=== PATIENT | female | born 1980 | race Caucasian/White ===

== ENCOUNTER 2018-01-31 14:41 | Emergency (ER) | payer BC ==
[2018-01-31 15:05] VITALS: BP 117/80
--- NOTE | 2018-01-31 16:05 | RAD ---
Indication: Right knee injury. 4 views of the right knee demonstrates suprapatellar effusion. No fracture is identified. IMPRESSION: Suprapatellar effusion without fracture.
--- NOTE | 2018-01-31 16:56 | UC ---
Knee Pain HPI - HPI Summary HPI Summary: 37-year-old woman comes in with complaint of right knee pain. Yesterday she twisted her right knee and it gave out. This happened 2 more times yesterday. There is swelling in the anterior portion of the knee. Complaining of tenderness in the anterior knee. She feels like it wants to get out. The swelling in the anterior knee. No clicking or locking. Difficulty with full extension secondary to swelling. - History of Current Complaint Chief Complaint: UCLowerExtremity Stated Complaint: RIGHT KNEE COMPLAINT Time Seen by Provider: 01/31/18 15:16 Hx Last Menstrual Period: 01/24/18 Pain Intensity: 5 Pain Scale Used: 0-10 Numeric - Allergies/Home Medications Allergies/Adverse Reactions: Allergies Allergy/AdvReac Type Severity Reaction Status Date / Time environmental allergies Allergy Congestion Uncoded 01/31/18 15:05 Home Medications: Home Medications DULoxetine DR CAP* [Cymbalta CAP*] 30 mg PO BEDTIME 01/31/18 [History Confirmed 01/31/18] DULoxetine DR CAP* [Cymbalta CAP*] 60 mg PO ONCE 01/31/18 [History Confirmed 08/15] Ibuprofen TAB* [Motrin TAB* 800 MG] 800 mg PO ONCE 01/31/18 [History Confirmed 01/31/18] buPROPion TAB* [Wellbutrin TAB*] 75 mg PO DAILY 01/31/18 [History Confirmed 08/15] PMH/Surg Hx/FS Hx/Imm Hx Other Endocrine History: NO DM Other Cardiovascular History: NO CAD - Surgical History Surgical History: None - Family History Known Family History: Positive: Hypertension Family History: FHX CVA - Social History Alcohol Use: Rare Substance Use Type: None Smoking Status (MU): Never Smoked Tobacco Review of Systems Constitutional: Negative Skin: Negative Eyes: Negative ENT: Negative Respiratory: Negative Cardiovascular: Negative Gastrointestinal: Negative Motor: Negative Neurovascular: Negative Musculoskeletal: Other: - Pain and swelling right knee Neurological: Negative Psychological: Negative Is Patient Immunocompromised?: No All Other Systems Reviewed And Are Negative: Yes Physical Exam Triage Information Reviewed: Yes Appearance: Well-Appearing, Well-Nourished Vital Signs: Initial Vital Signs Temp 97.5 F 01/31/18 15:00 Pulse 73 01/31/18 15:00 Resp 16 01/31/18 15:00 BP 117/80 01/31/18 15:00 Pulse Ox 99 01/31/18 15:00 Vital Signs Reviewed: Yes Eye Exam: Normal ENT Exam: Normal Neck: Positive: Supple Respiratory Exam: Normal Respiratory: Positive: No respiratory distress Cardiovascular: Positive: RRR Musculoskeletal: Positive: Other: - The right knee has an effusion around the patella. There is tenderness with lateral movement of the patella. The lateral and medial and posterior aspects of the knee are nontender. The knee is stable to exam however the patient reports it feels unstable during the exam. Positive Miles's medial and lateral. Neurological Exam: Normal Psychological Exam: Normal Skin Exam: Normal Knee Pain Course/Dx - Course Course Of Treatment: Order Information: KNEE RIGHT 4+ VWS. Accession Number: [id number]. CPT: 88555. Indication: Right knee injury. 4 views of the right knee demonstrates suprapatellar effusion. No fracture is identified. IMPRESSION : Suprapatellar effusion without fracture. . <Electronically signed by Nilsa Henderson MD in OV> 01/31 1602. Connor wrap ice rests elevation minimize weightbearing. Follow-up with primary medical doctor or with sports medicine and orthopedics. - Differential Dx/Diagnosis Provider Diagnoses: RIGHT KNEE PAIN WITH EFFUSION Discharge - Sign-Out/Discharge Documenting (check all that apply): Patient Departure All imaging exams completed and their final reports reviewed: Yes - Discharge Plan Condition: Stable Disposition: HOME Patient Education Materials: Swollen Knee Joint (ED), Knee Pain (ED) Referrals: [facility] [Outside] Junie Bansal MD [Primary Care Provider] - Additional Instructions: FOLLOW UP WITH YOUR PRIMARY CARE DOCTOR AND SPORTS MEDICINE/ORTHOPEDICS. GET RECHECKED FOR ANY WORSENING OF YOUR CONDITION OR QUESTIONS OR CONCERNS. - Billing Disposition and Condition Condition: STABLE Disposition: Home
== END 2018-01-31 16:38 | disposition home or self-care (01) ==
LOC: UCCORT 14:41
DX: M25.561 Pain in right knee (principal); M25.461 Effusion, right knee; Z91.09 Other allergy status, other than to drugs and biological substances; X50.1XXA Overexertion from prolonged static or awkward postures, initial encounter
CPT/HCPCS: 99213; G0463

== ENCOUNTER 2018-05-04 12:26 | Emergency (ER) | payer BC ==
[2018-05-04 12:57] VITALS: BP 102/71
--- NOTE | 2018-05-04 13:09 | UC ---
UC General HPI - HPI Summary HPI Summary: pt slipped on ice and fell injuring her R knee today. knee wants to give out and hurts. hurt same knee in january of this year and it never completely recovered. felt like joint was still loose. - History of Current Complaint Chief Complaint: UCLowerExtremity Stated Complaint: RIGHT KNEE INJURY Time Seen by Provider: 05/04/18 12:48 Hx Obtained From: Patient Hx Last Menstrual Period: 04/13 Onset/Duration: Sudden Onset Timing: Constant Pain Intensity: 7 Aggravating: weigth and walking on R leg Associated Signs & Symptoms: Negative: Fever - Allergy/Home Medications Allergies/Adverse Reactions: Allergies Allergy/AdvReac Type Severity Reaction Status Date / Time environmental allergies Allergy Congestion Uncoded 05/04/18 12:58 Home Medications: Home Medications Levocetirizine Dihydrochloride [Xyzal Allergy 24Hr] 5 mg PO QPM 05/04/18 [ History Confirmed 05/04/18] PMH/Surg Hx/FS Hx/Imm Hx Psychological History: Anxiety, Depression - Surgical History Surgical History: None - Family History Known Family History: Positive: Hypertension Family History: FHX CVA - Social History Lives: With Family Alcohol Use: Rare Substance Use Type: None Smoking Status (MU): Never Smoked Tobacco - Immunization History Vaccination Up to Date: Yes Review of Systems All Other Systems Reviewed And Are Negative: Yes Constitutional: Positive: Negative Skin: Positive: Negative Eyes: Positive: Negative ENT: Positive: Negative Respiratory: Positive: Negative Cardiovascular: Positive: Negative Gastrointestinal: Positive: Negative Genitourinary: Positive: Negative Motor: Positive: Negative Neurovascular: Positive: Negative Musculoskeletal: Positive: Other: - R knee pain Neurological: Positive: Negative Psychological: Positive: Negative Is Patient Immunocompromised?: No Physical Exam Triage Information Reviewed: Yes Appearance: Well-Appearing Vital Signs: Initial Vital Signs Temp 99.1 F 05/04/18 12:48 Pulse 90 05/04/18 12:48 Resp 16 05/04/18 12:48 BP 102/71 05/04/18 12:48 Pulse Ox 100 05/04/18 12:48 Eyes: Positive: Conjunctiva Clear ENT: Positive: Normal ENT inspection Neck: Positive: Supple Respiratory: Positive: Lungs clear Cardiovascular: Positive: RRR, No Murmur Abdomen Description: Positive: Nontender, No Organomegaly, Soft Bowel Sounds: Positive: Present Musculoskeletal: Positive: Other: - RLE: hip, ankle, foot are non tender. achilles is non tender and intact. knee without deformity or swelling but is tender over joint line. knee has no joint laxity plus active/passive rom is intact. gross s/v/m intact to foot. Neurological: Positive: Alert Psychological: Positive: Age Appropriate Behavior Skin Exam: Normal Diagnostics - Radiology No standard instances Radiology Interpretation Completed By: ED Physician - WET READ=NO FX, Radiologist - R KNEE=NO EVIDENCE FOR FRACTURE. Course/Dx - Differential Dx - Multi-Symptom Differential Diagnoses: Other - NO FX OR CONCERN FOR INFECTION. NO OVERT JOINT LAXITY. POSSIBLE MENISCAL INJURY. CRUTCHES, NON WEIGHT ON R LEG AND ORTHO F/U. - Diagnoses Provider Diagnosis: Right knee pain Discharge - Sign-Out/Discharge Documenting (check all that apply): Patient Departure All imaging exams completed and their final reports reviewed: Yes - Discharge Plan Condition: Stable Disposition: HOME Patient Education Materials: Knee Pain (ED) Referrals: Kd Hunter MD [Medical Doctor] - As Soon As Possible Additional Instructions: USE YOUR CRUTCHES AND AVOID WEIGHT ON RIGHT LEG UNTIL CLEARED BY ORTHOPEDICS - Billing Disposition and Condition Condition: STABLE Disposition: Home - Attestation Statements Provider Attestation: I was available for consult. This patient was seen by the WILLIAM. The patient was not presented to, seen by, or examined by me. -Jessee
== END 2018-05-04 14:11 | disposition home or self-care (01) ==
LOC: UCCORT 12:26
DX: M25.561 Pain in right knee (principal); W00.0XXA Fall on same level due to ice and snow, initial encounter; Y92.9 Unspecified place or not applicable
CPT/HCPCS: 99211; G0463

== ENCOUNTER → 2018-06-06 05:53 | Day surgery (SDC) | payer BC ==
[~2018-06-06 05:53] MED LIST: Atracurium* 10 MG/ML 10 ML VIAL ONE; Buffered Lidocaine 0.9% SYRIN* 5 ML/SYR SYRINGE INTRADERM ONE; Dexamethasone IV* 4 MG/ML 1 ML (4 MG) IV SLOW PU ONE; Dexamethasone IV* 4 MG/ML 1 ML (4 MG) ONE; DiMENhydriNATE IV* 50 MG/ML VIAL IV PUSH PRN; EPHEDrine (Pressors)* 50 MG/ML VIAL ONE; Famotidine IV* 10 MG/ML 2 ML (20 mg) IV ONE; Famotidine IV* 10 MG/ML 2 ML (20 mg) ONE; HYDROmorphone INJ1* 1 MG/ML SYRINGE IV PRN; Ketorolac INJ* 30 MG/ML 1 ML VIAL ONE; Lactated Ringers 1000 ML Bag* 1,000 ML IV SCH; Lidocain 1% EPI 1:100,000 * 30 ML MDV ONE; Lidocaine 2% PF * 5 ML VIAL ONE; Midazolam* 1 MG/ML 5 ML VIAL (5 MG) ONE; Naloxone* 0.4 MG/ML 1 ML VIAL IV PRN; Ondansetron INJ* 2 MG/ML VIAL IV PRN; Ondansetron INJ* 2 MG/ML VIAL ONE; Propofol* 10 MG/ML 20 ML BTL ONE; Ropivacaine* 2 MG/ML 20 ML VIAL (0.2%) ONE; Scopolamine 1.5 mg* PATCH TRANSDERM PRN; ceFAZolin 2 GM PREMIX in ORs 2 GM/50 ML BAG IVPB ONE; fentaNYL* 50 MCG/ML 2 ML VIAL (100 MCG VIAL) IV PRN; fentaNYL* 50 MCG/ML 2 ML VIAL (100 MCG VIAL) ONE; fentaNYL* 50 MCG/ML 5 ML VIAL (250 MCG VIAL) ONE; oxyCODONE/Acetamin 5/325 MG* TAB PO PRN
[2018-06-06 10:57] VITALS: BP 115/75
--- NOTE | 2018-06-07 02:18 | OP ---
DATE OF OPERATION: 06/06/18 [facility] DATE OF : 76 SURGEON: Kira Stewart MD INDUSTRIAL SWEEPER CLEANER: AUDRA Stewart. An shipping assistant was needed for the entirety of the case to help with positioning, retraction, and was utilized throughout all portions of the case. ANESTHESIOLOGIST: Dr. Link. ANESTHESIA: General. PRE-OP DIAGNOSIS: Right grade 3 ACL rupture with lateral meniscus bucket handle tear. POST-OP DIAGNOSIS: Right grade 3 ACL rupture with lateral meniscus bucket handle tear. OPERATIVE PROCEDURE: Right knee arthroscopy with: 1. Lateral meniscus repair. 2. ACL reconstruction using BTB autograft. COMPLICATIONS: None. ESTIMATED BLOOD LOSS: Minimal. TOURNIQUET TIME: 30 minutes. IMPLANTS USED: Bailey and Nephew 2 FastFix 360 and one 7 x 20 SoftSilk and one 9 x 25 SoftSilk. INDICATIONS: Willow Rdz is a 37-year-old female who sustained an injury to her knee. She has had persistent instability. She initially presented with a locked knee. She has failed conservative management. At the operative date, her knee had unlocked, she was able to have more range of motion, but she had persistent pain and instability. Risks and benefits of surgery were discussed at length including but not limited to bleeding; infection; damage to nerves, vessels, surrounding structures; wound nonhealing; persistent pain; need for further surgery; scaring; stiffness; incomplete relief of symptoms; risks of anesthesia, or risk of arthritis. She elected to proceed with surgical treatment. DESCRIPTION OF PROCEDURE: The patient was greeted in the preoperative area by the attending surgeon. The correct extremity was marked. Consent was confirmed. The patient brought back to the operating suite where she was placed in the supine position on the operating room table. She then underwent general anesthesia via LMA intubation, after which she was appropriately positioned on the bed. An unsterile tourniquet was placed high on the proximal thigh, a lateral post was positioned, a beanbag was placed to allow the leg to rest at 90 degrees. The right leg was then prepped and draped in the usual sterile fashion beginning with chlorhexidine, soap, scrub, and alcohol wipe and a final prep with ChloraPrep. After appropriate surgical pause indicating site, side, procedure, and administration of antibiotics; the knee was intra-articularly injected with 1% lidocaine with epi. The limb was then exsanguinated. An Esmarch was used to exsanguinate the limb. The tourniquet was inflated to 250 mmHg. A midline incision to the treating side, medial over the patellar tendon was then made with a #15 blade. Soft tissues were carefully dissected to expose the peritenon , layers were preserved for later closure. The patellar tendon was identified. It measured about 30 mm in width. The center 10 mm was then harvested for full thickness grafts using a 10 blade. The harvest was taken proximally to allow for a 9 x 23 mm patellar bone block, distally 10 x 30 mm patellar bone block. The graft was then harvested using a sagittal saw and osteotome. It was then prepared on the back table by the shipping assistant while the surgeon closed the patellar tendon and full thickness flaps with care to not over tighten and thus cause patellar baja. The tourniquet was deflated. After this was done, the attention was directed to the arthroscopy. A portal incision was made through the capsule and the scope was introduced to the joint. Joint was examined. There were grade 0 to 1 changes of the medial femoral condyle, medial plateau. ACL obviously had a grade 3 rupture with a tibial stump. The knee was taken to full extension. The anterior medial portal was made in an outside-in fashion. Shaver was used to debride back the abundant bursa. Synovitis was present. Patella was visualized and had grade 0 to 1 changes of patella and trochlea had grade 0 changes. Medial and lateral gutters were intact without any loose debris. The medial compartment was examined; again, there were grade 0 to 1 changes in the medial femoral condyle and grade 0 changes in the plateau. Medial meniscus was intact. The knee was placed in [id number] position. The lateral compartment was examined. There was hemorrhage posteriorly that was apparent. The anterior aspect of the lateral meniscus was found to be intact. The probe was then used to check the meniscus. The joint was subluxed into the joint. Decision was made to repair this. There was found to be a tear of the capsule in the red-red zone. The capsule as well as the meniscus remnant was then rasped using the meniscus rasp. Then, two FastFix 360s were then placed with excellent purchase. The tissue quality was okay, but it did hold the stitch. The knee was then taken through range of motion. There was no evidence of tearing or subluxation of the meniscus. Attention was then directed to remainder of the ACL. The knee was positioned at 90 degrees, the tibial and femoral footprints were exposed. Using a shaver and electro-cautery device to expose the femoral tunnel , the starting awl was then used to do provisional towboat pilot hole as the reference point for femoral tunnel, the camera was switched to the medial portal and the femoral tunnel was identified. Attention was then directed to the tibial tunnel. Once the center was identified using a tip-to-tip guide centered about 52 degrees, the center guidewire was drilled. The bone quality was fairly poor and once the appropriate position was identified, a 10 mm [place] reamer was then used to drill the tibial tunnel. The tunnel was then rasped. Care was taken to prevent fluid egress. Attention was directed to the femoral tunnel. The knee was then hyperflexed and the Bailey and Nephew straight guide was then placed in the center of the footprint and a Beath pin was drilled in the center of the footprint and out to the lateral condyle and to the IT band and the skin. Again, the bone quality was not very good. Once the optimal position was identified, a 9-mm low profile reamer was then used to drill a tunnel to a depth of about 25 mm. All excess bone and debris was removed. The tunnel was then notched. The #2 Ethibond suture was placed through the island of the Beath pin and advanced and then passed through anterograde fashion to the tibial tunnel. The graft was then brought from the back table, which had been rasped in saline silk gauze and then brought to the operating table. The graft was then passed under direct and arthroscopic visualization to be well seated in femoral tunnel. It was then secured with a 7 x 20 mm SoftSilk screw. The knee was then cycled approximately 15 times to make sure there is no movement or failure of the graft. The scope was brought back to the joint and there is no evidence of impingement anteriorly and the graft was found to be in good position. The knee was then placed at about 20 degrees of flexion with tension on the tibial sutures. A size 9 x 25 mm screw was then used to secure the tibial grasp. These were placed with excellent purchase. The knee was then taken through a range of motion. Juan was assessed and found to be stable. The scope was brought back to the joint and the graft was found to be in good position. Final images were obtained, the wounds were then copiously irrigated with sterile saline. Bone graft was placed in the patella and then the tibial defects and then closed with 0 Vicryl in interrupted fashion. Peritenon was closed with 2-0 Vicryl in a running fashion. Wounds were irrigated again and the skin was closed in layers with 2-0 Vicryl and 3- 0 Monocryl. Sterile dressings were applied. Cryo/Cuff and a hinged knee brace with range of motion 0 to 70 degrees was then placed. The wound was also injected with 0.2% ropivacaine because of pain control. She was awoken from anesthesia and transferred to PACU in stable condition. POSTOPERATIVE PLAN: She will be nonweightbearing. She will be discharged on pain medications and antibiotics. DVT prophylaxis considered, but deferred due to no previous personal or family history. I will see the patient back in 6 to 8 days. She will start therapy on postop day 3 or 4. [id number]/[facility] #: [id number] [facility]
== END | disposition home or self-care (01) ==
LOC: OR 05:53
PROVIDERS: ATTEND Orthopaedic Surgery
DX: S83.511A Sprain of anterior cruciate ligament of right knee, initial encounter (principal); S83.251A Bucket-handle tear of lateral meniscus, current injury, right knee, initial encounter; W00.0XXA Fall on same level due to ice and snow, initial encounter; Y92.480 Sidewalk as the place of occurrence of the external cause; M19.90 Unspecified osteoarthritis, unspecified site; F41.8 Other specified anxiety disorders
CPT/HCPCS: 81025; C1713; J0690; J1100; J1885; J2250; J2405; J2704; J2795; J3010

== ENCOUNTER 2018-11-21 11:09 | Day surgery (SDC) | payer BC ==
[~2018-11-21 11:09] MED LIST changes: -Atracurium* 10 MG/ML 10 ML VIAL ONE; -Buffered Lidocaine 0.9% SYRIN* 5 ML/SYR SYRINGE INTRADERM ONE; +Buffered Lidocaine 1% SYRIN* 1 ML/SYRINGE INTRADERM ONE; -Dexamethasone IV* 4 MG/ML 1 ML (4 MG) ONE; -DiMENhydriNATE IV* 50 MG/ML VIAL IV PUSH PRN; -EPHEDrine (Pressors)* 50 MG/ML VIAL ONE; -Famotidine IV* 10 MG/ML 2 ML (20 mg) ONE; -HYDROmorphone INJ1* 1 MG/ML SYRINGE IV PRN; -Ketorolac INJ* 30 MG/ML 1 ML VIAL ONE; -Lidocain 1% EPI 1:100,000 * 30 ML MDV ONE; -Lidocaine 2% PF * 5 ML VIAL ONE; -Midazolam* 1 MG/ML 5 ML VIAL (5 MG) ONE; -Naloxone* 0.4 MG/ML 1 ML VIAL IV PRN; -Ondansetron INJ* 2 MG/ML VIAL IV PRN; -Ondansetron INJ* 2 MG/ML VIAL ONE; -Propofol* 10 MG/ML 20 ML BTL ONE; -Ropivacaine* 2 MG/ML 20 ML VIAL (0.2%) ONE; -Scopolamine 1.5 mg* PATCH TRANSDERM PRN; -ceFAZolin 2 GM PREMIX in ORs 2 GM/50 ML BAG IVPB ONE; -fentaNYL* 50 MCG/ML 2 ML VIAL (100 MCG VIAL) IV PRN; -fentaNYL* 50 MCG/ML 2 ML VIAL (100 MCG VIAL) ONE; -fentaNYL* 50 MCG/ML 5 ML VIAL (250 MCG VIAL) ONE; -oxyCODONE/Acetamin 5/325 MG* TAB PO PRN
[2018-11-21] MEDS ORDERED: ceFAZolin 2 GM PREMIX in ORs 2 GM/50 ML BAG ONE (11:37)
[2018-11-21] MEDS ORDERED: Famotidine IV* 10 MG/ML 2 ML (20 mg) ONE (11:37)
[2018-11-21] MEDS ORDERED: Dexamethasone IV* 4 MG/ML 1 ML (4 MG) ONE (11:37)
[2018-11-21] MEDS ORDERED: Ropivacaine 0.2% * 2 MG/ML VIAL ONE (12:06)
[2018-11-21] MEDS ORDERED: Lidocaine 1% MPF wEPI 200,000* 30 ML SDV ONE (12:06)
[2018-11-21] MEDS ORDERED: Midazolam* 1 MG/ML 5 ML VIAL (5 MG) ONE (12:28)
[2018-11-21] MEDS ORDERED: fentaNYL* 50 MCG/ML 5 ML VIAL (250 MCG VIAL) ONE (12:28)
[2018-11-21] MEDS ORDERED: oxyCODONE/Acetamin 5/325 MG* TAB PO PRN (13:04)
[2018-11-21] MEDS ORDERED: fentaNYL* 50 MCG/ML 2 ML VIAL (100 MCG VIAL) IV PRN (13:04)
[2018-11-21] MEDS ORDERED: DiMENhydriNATE IV* 50 MG/ML VIAL IV PUSH PRN (13:04)
[2018-11-21] MEDS ORDERED: Ondansetron INJ* 2 MG/ML VIAL IV PRN (13:04)
[2018-11-21] MEDS ORDERED: Naloxone* 0.4 MG/ML 1 ML VIAL IV PRN (13:04)
[2018-11-21] MEDS ORDERED: Ketorolac INJ* 30 MG/ML 1 ML VIAL ONE (13:12)
[2018-11-21] MEDS ORDERED: Propofol* 10 MG/ML 20 ML BTL ONE (13:12)
[2018-11-21] MEDS ORDERED: Ondansetron INJ* 2 MG/ML VIAL ONE (13:12)
[2018-11-21] MEDS ORDERED: Lidocaine 2% PF * 5 ML VIAL ONE (13:12)
[2018-11-21 14:26] VITALS: BP 115/71
--- NOTE | 2018-11-21 15:06 | OP ---
CC: PCP, Junie Bansal MD * DATE OF OPERATION: 11/21/18 - [facility] DATE OF : 76 SURGEON: Kira Stewart MD. TIRE REBUILDER: None available. ANESTHESIOLOGIST: Dr. Link. ANESTHESIA: General. PRE-OP DIAGNOSES: Previous right knee anterior cruciate ligament reconstruction , lateral meniscus repair with intact graft and stiffness and ankylosis. POST-OP DIAGNOSES: Previous right knee anterior cruciate ligament reconstruction lateral meniscus repair with intact graft and stiffness and ankylosis, chondrosis of the medial femoral condyle. OPERATIVE PROCEDURES: 1. Right knee arthroscopy with lysis of adhesion. 2. Chondroplasty of medial femoral condyle and partial lateral meniscectomy. COMPLICATIONS: None. ESTIMATED BLOOD LOSS: Minimal. INDICATIONS: Willow Rdz is a 38-year-old female who underwent previous ACL construction with BTB autograft and lateral meniscus repair. She was doing well and had no pain, but she was starting to notice stiffness. She was unable to fully extend. I told her to work on physical therapy, antiinflammatories, ice, and heat. She continues to struggle. She does hyperextend her other side and did not promise that she would do that on this side, but she should at least get to 0. When I last saw her, she is interested to proceed with surgical treatment. The risks and benefits of surgery were discussed at length including but not limited to bleeding, infection; damage to nerves, vessels, surrounding structures; wound nonhealing; persistent pain; need for surgery; scarring; stiffness; incomplete relief of symptoms; risk of anesthesia. DESCRIPTION OF PROCEDURE: The patient was greeted in the preoperative area by the attending surgeon. The correct extremity was marked and consent was confirmed. The patient was brought back to the operating suite, where she was placed in supine position on the operating table. She then underwent general anesthesia with endotracheal intubation, after which she was appropriately positioned in the bed. The lateral post is positioned. The sterile tourniquet was placed on the proximal thigh. The leg was then prepped and draped in the usual sterile fashion beginning with chlorhexidine soap, scrub, and alcohol wipe , and a final prep with ChloraPrep. After appropriate surgical pause indicating side, site, procedure, and administration of antibiotics, the knee was intra-articularly injected with 1% lidocaine with epi. The anterolateral portal was made using 11 blade. Scope was introduced into the joint. Joint was examined. There was a small chondral flap that was apparent and there was some synovitis and no definitive cyclops lesion, but scar from the ligamentum from the notch to the prepatellar fat pad. The anteromedial portal was made in an outside-in fashion. Shaver was used to debride this back. The graft was intact. There was some mild fraying, which was debrided back, but the graft was intact. The knee was placed in full extension. There were grade 0 to 1 changes in the trochlea. There was an evidence of a chondral flap in the medial femoral condyle in the weightbearing zone. At the medial aspect of the medial femoral condyle with an unstable flap with grade 2 changes. Remainder of the medial femoral condyle had grade 0 changes. This was debrided back using the shaver. The medial meniscus was intact. Medial plateau was intact. The knee was placed in a [id number] position. The lateral meniscus was healed very nicely, but the lateral plateau had some fraying, which was not present in her previous surgery. There were some mild fraying of the root, which which was debrided back using shaver, but the remainder of the meniscus was intact and looks to be good quality and healed quite well. The knee was taken to a full extension and the gutters were examined and found to be intact. There was abundant scar tissue underneath the prepatella. This was debrided back using the shaver and electrocautery device. Hemostasis was obtained at all times. With the knee in extension, there was evidence of scar tissue from the knee cap all the way to the medial aspect of the joint, which could be causing some of the chondrosis that she was experiencing. This was debrided back using shaver as well as electrocautery device above the knee cap to localize it more appropriately. She was able to extend to 0 and flex to 140 degrees, stable Juan. The knee was sterilely lavaged to remove any loose debris. The wounds were copiously irrigated with sterile saline. Sterile dressings were applied. The portals were closed with 3 -0 nylon in interrupted fashion. Sterile dressings were applied as well as a cryo/Cuff. She was awoken from anesthesia and transferred to the PACU in stable condition. POSTOPERATIVE PLAN: She will be weightbearing as tolerated. Range of motion as tolerated. I will see the patient back in 10 to 14 days. DVT prophylaxis was considered but deferred. [id number]/[facility] #: [id number] MTDD
== END 2018-11-21 14:38 | disposition home or self-care (01) ==
LOC: OREAST 11:09
PROVIDERS: ATTEND Orthopaedic Surgery
DX: M24.661 Ankylosis, right knee (principal); M93.861 Other specified osteochondropathies, right lower leg; S83.511D Sprain of anterior cruciate ligament of right knee, subsequent encounter; F41.8 Other specified anxiety disorders; X58.XXXD Exposure to other specified factors, subsequent encounter; Y92.9 Unspecified place or not applicable; E66.9 Obesity, unspecified; Z68.35 Body mass index [BMI] 35.0-35.9, adult
CPT/HCPCS: 81025; J0690; J1100; J1885; J2001; J2250; J2405; J2704; J2795; J3010